=== PATIENT | female | born 1960 | race Two or more races ===

== ENCOUNTER 2018-02-17 18:54 | Emergency (ER) | payer MEDICAID, OTHER ==
[~2018-02-17] VITALS: Ht 160 cm; Wt 62.0 kg
[2018-02-17 19:06] VITALS: BP 122/71
[2018-02-17 19:27] LABS: URINE HCG NEGATIVE (NEG)
[2018-02-17 19:33] LABS: CLARITY,URINE SLIGHTLY CLOUDY (Clear); COLOR,URINE YELLOW (Yellow); GLUCOSE, URINE NEGATIVE (Neg); KETONES,URINE 40 mg/dl (Neg); LEUKOCYTE ESTERASE ,URINE MODERATE (Neg); NITRITES, URINE NEGATIVE (Neg); OCCULT BLOOD,URINE MODERATE (Neg); PROTEIN,URINE NEGATIVE (Neg); UROBILINOGEN,URINE 0.2 E.U/dL (0.2-1.0)
[2018-02-17 19:40] LABS: BASOPHILS % (AUTO) 0.4 % (0-1); EOSINOPHILS % (AUTO) 0.6 % (0-6); HEMOGLOBIN 14.6 g/dl (12.0-16.0); LYMPHOCYTES % (AUTO) 14.7 % (21-51); MEAN CORPUSCULAR HEMOGLOBIN 29.8 PG (27.0-31.0); MEAN CORPUSCULAR HGB CONC 33.2 % (33.0-36.5); MEAN CORPUSCULAR VOLUME 89.7 FL (78-98); MEAN PLATELET VOLUME 8.1 FL (7.4-10.4); MONOCYTES # (AUTO) 0.4 X10'3 (0-0.9); MONOCYTES % (AUTO) 6.3 % (2-12); NEUTROPHILS # (AUTO) 5.5 X10'3 (1.8-7.7); PLATELET COUNT 243 X10'3 (140-440); RED BLOOD COUNT 4.91 X10'6 (4.20-5.60); RED CELL DISTRIBUTION WIDTH 12.5 % (11.5-14.5)
[2018-02-17 19:54] LABS: ALANINE AMINOTRANSFERASE 16 U/L (12-78); ALBUMIN/GLOBULIN RATIO 1.1 (1.1-1.5); ALKALINE PHOSPHATASE 120 IU/L (46-116); ANION GAP 7 (8-16); ASPARTATE AMINO TRANSFERASE 19 U/L (10-37); BILIRUBIN,TOTAL 0.4 MG/DL (0.1-1.0); BLOOD UREA NITROGEN 10 MG/DL (7-18); BUN/CREATININE RATIO 13.2 (6.6-38.0); CALCIUM 9.2 MG/DL (8.5-10.1); CHLORIDE 104 MMOL/L (99-107); CREATININE 0.76 MG/DL (0.40-0.90); GLUCOSE 105 MG/DL (70-104); POTASSIUM 3.9 MMOL/L (3.5-5.1); SODIUM 140 MMOL/L (135-145); TOTAL CARBON DIOXIDE 28.6 MMOL/L (24-32); TOTAL PROTEIN 7.8 G/DL (6.4-8.2); eGFR 78 ML/MIN
[2018-02-17 19:56] LABS: UA COLLECTION TYPE CLN CATCH MIDSTREAM
[2018-02-17 19:57] LABS: MUCUS STRANDS MODERATE /LPF (Neg); SQUAMOUS EPITHELIAL CELL,UR MODERATE /LPF (FEW)
[2018-02-17 19:58] LABS: BACTERIA,URINE 1+ /HPF (Neg); RBC,URINE 0-2 /HPF (0-2); WBC,URINE 30-50 /HPF (0-4); YEAST MODERATE /HPF (NEGATIVE)
[2018-02-17 20:01] LABS: PROTHROMBIN TIME 10.4 SECONDS (9.0-12.0)
[2018-02-17] MEDS ORDERED: CIPR-230 PO (20:28)
[2018-02-17] MEDS ORDERED: METR500T4 PO (20:28)
[2018-02-17 20:40] LABS: PARTIAL THROMBOPLASTIN TIME 27 SECONDS (22-32)
[2018-02-17] MEDS ORDERED: metroNIDAZOLE 500mg tablet PO ONE (21:00)
[2018-02-17] MEDS ORDERED: HYDROcodone/acetaminophen 5mg/325mg tablet PO ONE (21:00)
[2018-02-17] MEDS ORDERED: ciprofloxacin 250mg tablet PO ONE (21:00)
== END 2018-02-17 21:25 | disposition home or self-care (01) ==
LOC: ER 18:55
DX: K57.92 Diverticulitis of intestine, part unspecified, without perforation or abscess without bleeding (principal); R07.9 Chest pain, unspecified; Z90.710 Acquired absence of both cervix and uterus; Z88.0 Allergy status to penicillin; Z79.2 Long term (current) use of antibiotics; Z79.899 Other long term (current) drug therapy
CPT/HCPCS: 36415; 71045; 80053; 81001; 81025; 84484; 85025; 85610; 85730; 87088; 93005; 99285; J3490